=== PATIENT | male | born 1985 | race Caucasian/White ===

== ENCOUNTER → 2021-06-24 17:41 | Outpatient (BNVA) | payer OTHER, SELFPAY | PROVIDERS: PCP Family Medicine; Visit Provider Nurse Practitioner Family | DX: L65.9 Nonscarring hair loss, unspecified (principal); R53.83 Other fatigue | CPT/HCPCS: 80053; 84443; 85025 ==

== ENCOUNTER → 2021-07-21 16:34 | Outpatient (BNVA) | payer OTHER, SELFPAY | PROVIDERS: PCP Family Medicine; Visit Provider Emergency Medicine | DX: L65.9 Nonscarring hair loss, unspecified (principal) | CPT/HCPCS: 84402; 84403 ==

== ENCOUNTER → 2021-10-24 16:59 | Outpatient (BNVA) | payer OTHER, SELFPAY | PROVIDERS: PCP Family Medicine; Visit Provider Emergency Medicine | DX: T67.4XXA Heat exhaustion due to salt depletion, initial encounter (principal); X30.XXXA Exposure to excessive natural heat, initial encounter | CPT/HCPCS: 80048 ==

== ENCOUNTER 2021-10-31 19:29 | Emergency (ER) | payer SELFPAY ==
[2021-10-31 19:36] VITALS: BP 144/85; PULSE 94; RESP 18; TEMP 36.7; O2SAT 99; BMI 24.7
[2021-10-31] MEDS: sodium chloride 0.9% 1,000 ML 999 ML IV ×2 (20:00→20:35)
[2021-10-31 20:07] LABS: Basophils % 0.4 %; Eosinophils # 0.3 10^3/uL (0.0-0.8); Eosinophils % 3.1 %; Hemoglobin 16.9 g/dL (11.7-16.6); Lymphocytes % 35.4 %; Mean Corpuscular HGB Conc 34.5 g/dL (30.0-36.0); Mean Corpuscular Hemoglobin 28.5 pg (28.0-34.0); Mean Corpuscular Volume 82.8 fl (80-94); Monocytes # 0.7 10^3/uL (0.2-0.9); Monocytes % 8.8 %; Neutrophils # 4.34 10^3/uL (1.8-7.7); Neutrophils % 51.6 %; Nucleated Red Blood Cells % 0 %; Platelet Count 243 10^3/cmm (130-400); Red Blood Count 5.92 10^6/uL (4.1-5.3); Red Cell Distribution Width 12.5 % (12.1-15.1); White Blood Count 8.4 10^3/uL (4.0-10.0)
--- NOTE | 2021-10-31 20:15 | CTR_ITS ---
PROCEDURE INFORMATION: Exam: CT Head Without Contrast Exam date and time: 10/31/2021 8:25 PM Age: 35 years old Clinical indication: Pain; Headache; Patient HX: SPENCER with dizziness. TECHNIQUE: Imaging protocol: Computed tomography of the head without contrast. Radiation optimization: All CT scans at this facility use at least one of these dose optimization techniques: automated exposure control; mA and/or kV adjustment per patient size (includes targeted exams where dose is matched to clinical indication); or iterative reconstruction. COMPARISON: No relevant prior studies available. RADIATION DOSE METRICS: Total DLP (mGy-cm): 1089.58 FINDINGS: Brain: Normal. No hemorrhage. Unremarkable white matter. No mass effect. Cerebral ventricles: No ventriculomegaly. Paranasal sinuses: There is mild patchy mucosal thickening in the sinuses. No air-fluid levels. Mastoid air cells: Visualized mastoid air cells are well aerated. Bones/joints: Unremarkable. No acute fracture. Soft tissues: Unremarkable. CT/CT head wo con* [id number] IMPRESSION: No acute intracranial abnormality.
--- NOTE | 2021-10-31 20:18 | ED_ITS ---
HPI - Weakness General: Chief complaint: Weakness Stated complaint: heat exposure, tired Time Seen by Provider: 10/31/21 19:52 Source: patient Mode of arrival: ambulatory Limitations: no limitations History of Present Illness: 35-year-old male who states that he got overheated 3 weeks ago. He states that ever since that he is just not been feeling right. He states he feels dehydrated and lethargic and been having some mild headaches he states headaches currently 6 out of 10. He states he is outside working 3 weeks ago when went down on the floor was having carpopedal spasms and states that he has never been seen since then. Denies any vomiting or diarrhea. Associated symptoms: Reports headache(s); Denies chest pain, chills, dysuria, easy bruising, fever(s), nausea or vomiting Review of Systems Const: Reports: body aches and fatigue; Denies: fever(s), chills or change in appetite Eyes: Denies: blurry vision or eye discomfort ENMT: Denies: throat pain or dental pain Card: Denies: chest pain Resp: Denies: dyspnea GI: Denies: abdominal pain, nausea, vomiting or diarrhea : Denies: dysuria Musc: Denies: neck pain or back pain Skin/Breast: Denies: rash Neuro: Reports: headache(s) Psych: Denies: depression Gunner/Lymph: Denies: easy bruising All/Imm: Denies: urticaria PFSH ED PFSH: Social History Smoking and tobacco status: former smoker Alcohol intake: current Alcohol intake frequency: holidays/special occasions only Physical Exam Const: COMMON NORMALS: no acute distress, patient oriented x3 and healthy appearing HENMT: COMMON NORMALS: normocephalic and atraumatic HEAD & SCALP: normocephalic and atraumatic Eye: COMMON NORMALS: Equal, round and reactive pupils present and EOMs intact bilaterally PUPIL: Yes Equal, round and reactive pupils present Neck/C-Spine: COMMON NORMALS: full ROM and supple Chest: COMMONS NORMALS: normal inspection of the chest and normal palpation of entire chest wall Resp: COMMON NORMALS: normal respiratory effort, No retractions, No use of accessory muscles and clear to auscultation bilaterally AUSCULTATION: clear to auscultation bilaterally Cardio: COMMON NORMALS: regular rate, regular rhythm and No murmurs present (Cardio) RATE: regular rate RHYTHM: regular rhythm GI: COMMON NORMALS: Normal to inspection, nondistended, normoactive bowel sounds present, Soft to palpation, non-tender and no masses PALPATION: Yes Soft to palpation Extremity: COMMON NORMALS: normal to inspection and full ROM Neuro: COMMON NORMALS: patient oriented x3, moves all extremities and no focal motor deficits Psych: COMMON NORMALS: mental status grossly normal, Normal thought process present and cooperative THOUGHT PROCESS: Normal thought process present Skin: COMMON NORMALS: no rashes or lesions noted and no wounds GENERAL SKIN EXAM: no rashes or lesions noted Course Vital Signs: Vital signs: Vital Signs Temperature 98.1 F 10/31/21 19:36 Pulse Rate 84 10/31/21 20:39 Respiratory Rate 16 10/31/21 20:39 Blood Pressure 127/85 10/31/21 20:39 Pulse Oximetry 100 10/31/21 20:39 Oxygen Delivery Me thod 10/31/21 19:36 MDM - Weakness Medical Decision Making Patient presents here he exposure he feels much improved here after IV fluids he has had headaches his head CT is normal he has no signs of subarachnoid hemorrhage or aneurysm. He is stable for discharge he is to follow-up PCP and return if worsening he understands agrees to plan. Lab Data : 10/31/21 19:47 10/31/21 19:[address] 10/31/21 20:15 IMPRESSION: No acute intracranial abnormality. Laboratory Results WBC 8.4 10^3/uL (4.0-10.0) 10/31/21 19:47 RBC 5.92 10^6/uL (4.1-5.3) H 10/31/21 19:47 Hgb 16.9 g/dL (11.7-16.6) H 10/31/21 19:47 Hct 49.0 % (42.0-52.0) 10/31/21 19:47 MCV 82.8 fl (80-94) 10/31/21 19:47 MCH 28.5 pg (28.0-34.0) 10/31/21 19:47 MCHC 34.5 g/dL (30.0-36.0) 10/31/21 19:47 RDW 12.5 % (12.1-15.1) 10/31/21 19:47 Plt Count 243 10^3/cmm (130-400) 10/31/21 19:47 MPV 9.0 fL (7.4-10.4) 10/31/21 19:47 Neut % (Auto) 51.6 % 10/31/21 19:47 Lymph % (Auto) 35.4 % 10/31/21 19:47 [place] % (Auto) 8.8 % 10/31/21 19:47 Eos % (Auto) 3.1 % 10/31/21 19:47 Baso % (Auto) 0.4 % 10/31/21 19:47 Neut # (Auto) 4.34 10^3/uL (1.8-7.7) 10/31/21 19:47 Lymph # (Auto) 3.0 10^3/uL (0.8-4.8) 10/31/21 19:47 [place] # (Auto) 0.7 10^3/uL (0.2-0.9) 10/31/21 19:47 Eos # (Auto) 0.3 10^3/uL (0.0-0.8) 10/31/21 19:47 Baso # (Auto) 0.0 10^3/uL (0.0-0.1) 10/31/21 19:47 Nucleated RBC % (auto) 0 % 10/31/21 19:47 Nucleated RBCs # 0.0 /100WBC 10/31/21 19:47 Sodium 140 mmol/L (136-145) 10/31/21 19:47 Potassium 4.2 mmol/L (3.5-5.1) 10/31/21 19:47 Chloride 101 mmol/L (98-107) 10/31/21 19:47 Carbon Dioxide 29 mmol/L (22-29) 10/31/21 19:47 Anion Gap 14.2 (5-19) 10/31/21 19:47 BUN 11 mg/dL (6-20) 10/31/21 19:47 Creatinine 0.6 mg/dL (0.7-1.2) L 10/31/21 19:47 GFR Calculation 153.3 mL/min (90-130) H 10/31/21 19:47 Glucose 78 mg/dL (65-115) 10/31/21 19:47 Calculated Osmolality 288 mOsm/kg (285-295) 10/31/21 19:47 Calcium 10.2 mg/dL (8.5-10.5) 10/31/21 19:47 Total Bilirubin 0.4 mg/dL (0.15-1.2) 10/31/21 19:47 AST 26 U/L (0-40) 10/31/21 19:47 ALT 74 U/L (0-41) H 10/31/21 19:47 Alkaline Phosphatase 79 IU/L (40-130) 10/31/21 19:47 Creatine Kinase 65 U/L (39-308) 10/31/21 19:47 Total Protein 7.8 g/dL (6.6-8.7) 10/31/21 19:47 Albumin 5.2 g/dL (3.5-5.2) 10/31/21 19:47 Globulin 2.6 g/dL (1.3-4.6) 10/31/21 19:47 TSH 2.22 uIU/mL (0.27-4.20) 10/31/21 19:47 TSH Cancelled 10/31/21 19:47 Discharge Plan Discharge Patient Disposition: Home Clinical Impression: Heat exposure Condition: Stable Prescriptions: No Action bupropion HCl [Wellbutrin SR] 100 mg tablet sustained-release 12 hr 100 mg PO QAM 30 Days Qty: 30 0RF Discharge Orders: Discharge ED (Routine); Ordered 10/31/21 Ordered By: Alex Julio Discharge Diet: Advance as tolerated Discharge Activity: Resume usual activity Patient Instructions: Heat Exhaustion (ED) Coding Level of Care Code ED Claim Trainee for Chg Fwd Exam Comprehensive
[2021-10-31] MEDS: ondansetron 2 mg/ML SDV 2 mL 4 MG IVP (20:35)
[2021-10-31 20:39] VITALS: BP 127/85; PULSE 84; RESP 16; O2SAT 100
[2021-10-31 20:46] LABS: Alanine Aminotransferase 74 U/L (0-41); Albumin Level 5.2 g/dL (3.5-5.2); Alkaline Phosphatase 79 IU/L (40-130); Anion Gap 14.2 (5-19); Aspartate Amino Transferase 26 U/L (0-40); Blood Urea Nitrogen 11 mg/dL (6-20); Calcium 10.2 mg/dL (8.5-10.5); Carbon Dioxide 29 mmol/L (22-29); Chloride 101 mmol/L (98-107); Creatine Phosphokinase 65 U/L (39-308); Globulin 2.6 g/dL (1.3-4.6); Glomerular Filtration Rate 153.3 mL/min (90-130); Glucose 78 mg/dL (65-115); Osmolality Calculated 288 mOsm/kg (285-295); Potassium 4.2 mmol/L (3.5-5.1); Sodium 140 mmol/L (136-145); Thyroid Stimulating Hormone 2.22 uIU/mL (0.27-4.20); Total Bilirubin 0.4 mg/dL (0.15-1.2); Total Protein 7.8 g/dL (6.6-8.7)
== END 2021-10-31 21:26 | disposition home or self-care (01) ==
PROVIDERS: Emergency Provider Emergency Medicine
DX: T67.9XXA Effect of heat and light, unspecified, initial encounter (principal); X30.XXXA Exposure to excessive natural heat, initial encounter; Z87.891 Personal history of nicotine dependence
CPT/HCPCS: 70450; 80053; 82550; 84443; 85025; 96374; 99284; J2405; J7030

== ENCOUNTER → 2021-12-15 09:04 | Outpatient (BNVA) | payer OTHER, SELFPAY | PROVIDERS: PCP Family Medicine; Visit Provider Family Medicine | DX: G47.10 Hypersomnia, unspecified (principal); I10 Essential (primary) hypertension; G47.00 Insomnia, unspecified; R74.01 Elevation of levels of liver transaminase levels; R53.83 Other fatigue; Z11.4 Encounter for screening for human immunodeficiency virus [HIV]; Z87.898 Personal history of other specified conditions; E34.9 Endocrine disorder, unspecified; F32.1 Major depressive disorder, single episode, moderate; R53.82 Chronic fatigue, unspecified | CPT/HCPCS: 80053; 84402; 84403; 86803; 87806 ==

== ENCOUNTER 2022-01-27 20:00 | Outpatient (CLI) | payer OTHER, SELFPAY | END 2022-01-27 20:01 | disposition home or self-care (01) | LOC: SLEEP 01-28 07:02 | PROVIDERS: PCP Family Medicine; Visit Provider Family Medicine | DX: G47.10 Hypersomnia, unspecified (principal); R06.83 Snoring; G47.33 Obstructive sleep apnea (adult) (pediatric) | CPT/HCPCS: 95810 ==

== ENCOUNTER → 2022-02-23 11:25 | Outpatient (BNVA) | payer OTHER, SELFPAY | PROVIDERS: PCP Family Medicine; Visit Provider Family Medicine | DX: R53.82 Chronic fatigue, unspecified (principal); A04.8 Other specified bacterial intestinal infections; R41.89 Other symptoms and signs involving cognitive functions and awareness; G47.33 Obstructive sleep apnea (adult) (pediatric); I10 Essential (primary) hypertension; G47.10 Hypersomnia, unspecified | CPT/HCPCS: 80053; 82607; 82652; 84443; 85025; 86618; 86666; 86757 ==

== ENCOUNTER 2024-02-14 12:27 | Emergency (ER) | payer MEDICAID, SELFPAY ==
--- NOTE | 2024-02-14 12:29 | XRR_ITS ---
PROCEDURE INFORMATION: Exam: XR Right Knee Exam date and time: 02/14/2024 2:41 PM Age: 38 years old Clinical indication: Injury or trauma; Other: Not specified; Blunt trauma; Knee; Right TECHNIQUE: Imaging protocol: Radiologic exam of the right knee. Views: 3 views. COMPARISON: No relevant prior studies available. FINDINGS: Bones/joints: Small to moderate joint effusion. No fracture. Soft tissues: Normal. XR/XR knee RT 3V* [id number] IMPRESSION: Joint effusion.
[2024-02-14 12:45] VITALS: BP 121/82; PULSE 98; RESP 16; TEMP 36.9; O2SAT 100; BMI 23.6
--- NOTE | 2024-02-14 14:36 | USCV_ITS ---
Greg Mathews Age: 38 Gender: M : 1985 Exam Date: 02/14/2024 15:00 Ordering Phys: Rajani Griggs Technologist: Exam Location: [facility] [place] Indication: painfull pale rt leg Risk Factors: Previous Vascular Surgery: RIGHT LEFT BP: 125.0 / 75.00 BP: 120.0/ 75.00 0 0 Waveform Velocity (cm/s) Velocity (cm/s) Waveform Triphasic 122.0 Iliac Prox Triphasic 130.0 Iliac Mid Triphasic 114.0 Iliac Distal Triphasic [employer] CONSULTANT 92.0 Triphasic 103.0 SFA Prox Triphasic 114.0 SFA Mid Triphasic 101.0 SFA Dist Triphasic 40.0 POP Triphasic 34.0 [employer] Triphasic 29.0 DPA 1.0 ENMANUEL FINDINGS normal blood flow Resting ENMANUEL 1.0 on the right side Normal arterial Doppler waveforms and velocities CONCLUSIONS Normal resting ENMANUEL with normal Doppler features. No significant arterial obstruction, based on the above findings. Dr Basil Cordon MD FACC (Electronically Signed) Final Date: 15 February 2024 20:16 S
--- NOTE | 2024-02-14 14:38 | ED_ITS ---
Documented by User: DUANE Donahue 02/14/24 16:21 HPI - Extremity Problem 2 General: Chief complaint: Extremity Problem,Nontraumatic Stated complaint: rt knee inj Time Seen by Provider: 02/14/24 12:48 Source: patient Mode of arrival: ambulatory Limitations: no limitations History of Present Illness: Patient is a 38-year-old male presents to ED today with complaint of right lower extremity pain. Patient states yesterday he was at a friend's house, seated at a barstool when he began noticing that his right lower extremity felt numb. Patient feels like symptoms improved when he got home. He states he woke up this morning and noticed pain and swelling involving his right knee and into his right calf. He has not had any known injury or trauma to the lower extremity. He states he has pain starting at his right hip radiating all the way down into the calf. He has not noticed any color or temperature changes however clinically the right foot is cool to the touch and pale when compared to the left. PMH significant for ADHD that he treats with Adderall. MD Complaint: extremity pain, joint swelling and joint pain Onset (ago): day(s) Pain Consistency: constant Location: right, lower extremity and knee Exacerbating factors: range of motion, weight bearing and walking Associated symptoms: Reports no associated symptoms; Deny chest pain or fever(s) Related Data Home Medications Medication Instructions Recorded Confirmed dextroamphetamine-amphetamine ER 25 mg PO DAILY 02/14/24 02/14/24 25 mg 24hr capsule,extend release (Adderall XR) Previous Rx's Medication Instructions Recorded ibuprofen 800 mg tablet 800 mg PO Q8H PRN pain #20 tabs 02/14/24 Allergies Allergy/AdvReac Type Severity Reaction Status Date / Time No Known Allergies Allergy Verified 02/14/24 12:53 Review of Systems 2 Const: Denies: fever(s), chills, body aches, fatigue or malaise Card: Denies: chest pain Resp: Denies: dyspnea Musc: Reports: extremity pain, joint pain, joint swelling, joint redness and joint warmth; Denies: neck pain, back pain, extremity swelling, muscle cramps, muscle weakness or decrease in muscle mass Neuro: Reports: sensory changes (R LE) and difficulty walking (due to pain in R LE); Denies: numbness in extremities or weakness in extremities PFSH ED 2 PFSH: Social History Smoking and tobacco/nicotine status: never used tobacco/nicotine Alcohol intake: current Alcohol intake frequency: holidays/special occasions only Substance/Drug Use: 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 Physical Exam 2 Const: COMMON NORMALS: no acute distress, average body habitus, patient oriented x3, no limitations, healthy appearing, alert and well nourished G ENERAL APPEARANCE: cooperative ORIENTATION/CONSCIOUSNESS: Yes awake, Yes oriented to person, Yes oriented to place and Yes oriented to time Resp: COMMON NORMALS: normal respiratory effort and clear to auscultation bilaterally AUSCULTATION: clear to auscultation bilaterally Cardio: COMMON NORMALS: regular rate and regular rhythm RATE: regular rate RHYTHM: regular rhythm Back/Pelvis: COMMON NORMALS: thoracic and lumbar spine normal to inspection, no thoracic nor lumbar tenderness, thoraco-lumbar ROM normal and straight leg raise negative bilaterally Extremity: COMMON NORMALS: no pedal edema GENERAL: Yes normal exam except as noted OTHER: pts R foot appears pale and feels cool when compared to L; I can easily palpate DP pulse on L but not on R; he has a palpable R femoral pulse R knee anteriorly is slightly erythematous and warm to the touch; joint effusion present; small scab/sore noted; he does have painful ROM but micro-movements are fairly tolerated; pain just distal to knee into calf Neuro: COMMON NORMALS: patient oriented x3, moves all extremities, no focal motor deficits and no sensory deficits noted SENSORIUM/ORIENTATION: Yes alert, Yes oriented to person, Yes oriented to place and Yes oriented to time Course 2 Vital Signs: Vital signs: Vital Signs Temperature 98.4 F 02/14/24 12:45 Pulse Rate 90 02/14/24 17:02 Respiratory Rate 18 02/14/24 16:00 Blood Pressure 132/88 02/14/24 17:02 Pulse Oximetry 97 02/14/24 17:02 Oxygen Delivery Me thod Room Air 02/14/24 16:00 MDM - Extremity (Nontraumatic) Medical Decision Making Patient with complaint of pain to R LE mainly around his knee joint. He was fairly tender with ROM of the joint. His R foot was pale and cool compared to L thus US imaging ordered. He has normal arterial flow throughout the extremity. No DVT. Spoke to him about arthrocentesis for septic joint rule out which he was agreeable to at first but ultimately refused. Risks of this were discussed and he verbalized understanding. Will treat his knee effusion with anti- inflammatories and have him follow-up primary care. Vital signs are normal. His blood work showing a normal white count. Normal lactate and normal ESR. CRP is scantly elevated 11.5. Return to ED precautions given. Medical Records I reviewed the patient's medical records. Lab Data I reviewed the patient's lab results. 02/14/24 15:31 Radiology Impressions Knee X-Ray 02/14/24 12:29 IMPRESSION: Joint effusion. Laboratory Results WBC 8.88 10^3/uL (3.29-11.43) 02/14/24 15:31 RBC 4.89 10^6/uL (3.85-5.65) 02/14/24 15:31 Hgb 14.50 g/dL (11.27-16.99) 02/14/24 15:31 Hct 41.7 % (37-53) 02/14/24 15:31 MCV 85.3 fl (82-101) 02/14/24 15:31 MCH 29.7 pg (27-33) 02/14/24 15:31 MCHC 34.8 g/dL (30-55) 02/14/24 15:31 RDW 12.3 % (12.1-15.1) 02/14/24 15:31 Plt Count 255 10^3/cmm (157-399) 02/14/24 15:31 MPV 8.9 fL (7.4-10.4) 02/14/24 15:31 Neut % (Auto) 67.0 % 02/14/24 15:31 Lymph % (Auto) 20.8 % 02/14/24 15:31 [place] % (Auto) 8.2 % 02/14/24 15:31 Eos % (Auto) 3.6 % 02/14/24 15:31 Baso % (Auto) 0.2 % 02/14/24 15:31 Neut # (Auto) 5.94 10^3/uL (1.8-7.7) 02/14/24 15:31 Lymph # (Auto) 1.9 10^3/uL (0.8-4.8) 02/14/24 15:31 [place] # (Auto) 0.7 10^3/uL (0.2-0.9) 02/14/24 15:31 Eos # (Auto) 0.3 10^3/uL (0.0-0.8) 02/14/24 15:31 Baso # (Auto) 0.0 10^3/uL (0.0-0.1) 02/14/24 15:31 Nucleated RBC % (auto) 0 % 02/14/24 15:31 Nucleated RBCs # 0.0 /100WBC 02/14/24 15:31 ESR 6 mm/hr (0-10) 02/14/24 15:31 Lactic Acid 1.4 mmol/L (0.5-2.2) 02/14/24 15:31 C-Reactive Protein 11.5 mg/L (0.0-4.9) H 02/14/24 15:31 All radiology interpretation(s) finalized by discharge Discharge Plan Discharge Patient Disposition: Home Clinical Impression: Acute pain of right knee Condition: Stable Prescriptions: New ibuprofen 800 mg tablet 800 mg PO Q8H PRN (Reason: pain) Qty: 20 0RF No Action dextroamphetamine-amphetamine [Adderall XR] 25 mg capsule,extended release 24hr 25 mg PO DAILY Discharge Orders: Discharge ED (Routine); Ordered 02/14/24 Ordered By: Rajani Griggs Referrals: Oly Kelly [Primary Care Provider] - Activity Restrictions/Additional Instructions: As we discussed, your white count here was normal. One of your inflammatory markers was normal, the other was scantly elevated. You have declined an arthrocentesis for further evaluation and rule out of a septic joint. I would like you to ice and elevate the knee and begin taking your prescription anti- inflammatories. You need to return to the emergency department immediately for worsening knee pain, redness, warmth, severe pain with range of motion of the knee joint, fevers, or any other concerns you may have. Otherwise I would like you to follow-up with primary care by the end of the week. Coding Level of Care Code ED Complaint Adjuster for Yojana Fwd Documented by User: Alex Julio MD 02/14/24 17:26 HPI - Extremity Problem 2 General: Chief complaint: Extremity Problem,Nontraumatic Stated complaint: rt knee inj Time Seen by Provider: 02/14/24 12:48 Related Data Home Medications Medication Instructions Recorded Confirmed dextroamphetamine-amphetamine ER 25 mg PO DAILY 02/14/24 02/14/24 25 mg 24hr capsule,extend release (Adderall XR) Previous Rx's Medication Instructions Recorded ibuprofen 800 mg tablet 800 mg PO Q8H PRN pain #20 tabs 02/14/24 Allergies Allergy/AdvReac Type Severity Reaction Status Date / Time No Known Allergies Allergy Verified 02/14/24 12:53 PFSH ED 2 PFSH: Social History Smoking and tobacco/nicotine status: never used tobacco/nicotine Alcohol intake: current Alcohol intake frequency: holidays/special occasions only Substance/Drug Use: 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 He was fairly tender with ROM of the joint. His R foot was pale and cool compared to L thus US imaging ordered. He has normal arterial flow throughout the extremity. No DVT. Spoke to him about arthrocentesis for septic joint rule out which he was agreeable to at first but ultimately refused. Risks of this were discussed and he verbalized understanding. Will treat his knee effusion with anti- inflammatories and have him follow-up primary care. Vital signs are normal. His blood work showing a normal white count. Normal lactate and normal ESR. CRP is scantly elevated 11.5. Return to ED precautions given. I seen patient above midlevel I attempted to do arthrocentesis and he refused inflammatory markers are normal as exam showed minimal tenderness and minimal erythema I strongly recommended arthrocentesis to rule out the possibility of septic joint I do believe that it is very unlikely he refused before is able to attempt to draw any fluid off we will discharge this time he is return if he has worsening pain he understands agrees to plan. Lab Data 02/14/24 15:31 Radiology Impressions Knee X-Ray 02/14/24 12:29 IMPRESSION: Joint effusion. Laboratory Results WBC 8.88 10^3/uL (3.29-11.43) 02/14/24 15:31 RBC 4.89 10^6/uL (3.85-5.65) 02/14/24 15:31 Hgb 14.50 g/dL (11.27-16.99) 02/14/24 15:31 Hct 41.7 % (37-53) 02/14/24 15:31 MCV 85.3 fl (82-101) 02/14/24 15:31 MCH 29.7 pg (27-33) 02/14/24 15:31 MCHC 34.8 g/dL (30-55) 02/14/24 15:31 RDW 12.3 % (12.1-15.1) 02/14/24 15:31 Plt Count 255 10^3/cmm (157-399) 02/14/24 15:31 MPV 8.9 fL (7.4-10.4) 02/14/24 15:31 Neut % (Auto) 67.0 % 02/14/24 15:31 Lymph % (Auto) 20.8 % 02/14/24 15:31 [place] % (Auto) 8.2 % 02/14/24 15:31 Eos % (Auto) 3.6 % 02/14/24 15:31 Baso % (Auto) 0.2 % 02/14/24 15:31 Neut # (Auto) 5.94 10^3/uL (1.8-7.7) 02/14/24 15:31 Lymph # (Auto) 1.9 10^3/uL (0.8-4.8) 02/14/24 15:31 [place] # (Auto) 0.7 10^3/uL (0.2-0.9) 02/14/24 15:31 Eos # (Auto) 0.3 10^3/uL (0.0-0.8) 02/14/24 15:31 Baso # (Auto) 0.0 10^3/uL (0.0-0.1) 02/14/24 15:31 Nucleated RBC % (auto) 0 % 02/14/24 15:31 Nucleated RBCs # 0.0 /100WBC 02/14/24 15:31 ESR 6 mm/hr (0-10) 02/14/24 15:31 Lactic Acid 1.4 mmol/L (0.5-2.2) 02/14/24 15:31 C-Reactive Protein 11.5 mg/L (0.0-4.9) H 02/14/24 15:31 Discharge Plan Discharge Patient Disposition: Home Clinical Impression: Acute pain of right knee Condition: Stable Prescriptions: New ibuprofen 800 mg tablet 800 mg PO Q8H PRN (Reason: pain) Qty: 20 0RF No Action dextroamphetamine-amphetamine [Adderall XR] 25 mg capsule,extended release 24hr 25 mg PO DAILY Discharge Orders: Discharge ED (Routine); Ordered 02/14/24 Ordered By: Rajani Griggs Referrals: Oly Kelly [Primary Care Provider] - Activity Restrictions/Additional Instructions: As we discussed, your white count here was normal. One of your inflammatory markers was normal, the other was scantly elevated. You have declined an arthrocentesis for further evaluation and rule out of a septic joint. I would like you to ice and elevate the knee and begin taking your prescription anti- inflammatories. You need to return to the emergency department immediately for worsening knee pain, redness, warmth, severe pain with range of motion of the knee joint, fevers, or any other concerns you may have. Otherwise I would like you to follow-up with primary care by the end of the week. Coding Level of Care Code ED Complaint Adjuster for Yojana Haro
[2024-02-14 14:52] VITALS: BP 120/80; PULSE 74; RESP 18; O2SAT 97
[2024-02-14 15:45] LABS: Basophils % 0.2 %; Eosinophils # 0.3 10^3/uL (0.0-0.8); Eosinophils % 3.6 %; Hematocrit 41.7 % (37-53); Lymphocytes # 1.9 10^3/uL (0.8-4.8); Lymphocytes % 20.8 %; Mean Corpuscular HGB Conc 34.8 g/dL (30-55); Mean Corpuscular Hemoglobin 29.7 pg (27-33); Mean Corpuscular Volume 85.3 fl (82-101); Mean Platelet Volume 8.9 fL (7.4-10.4); Monocytes # 0.7 10^3/uL (0.2-0.9); Monocytes % 8.2 %; Neutrophils # 5.94 10^3/uL (1.8-7.7); Nucleated Red Blood Cells % 0 %; Platelet Count 255 10^3/cmm (157-399); Red Blood Count 4.89 10^6/uL (3.85-5.65); Red Cell Distribution Width 12.3 % (12.1-15.1); White Blood Count 8.88 10^3/uL (3.29-11.43)
[2024-02-14 15:48] LABS: Erythrocyte Sedimentation Rate 6 mm/hr (0-10)
[2024-02-14 16:00] VITALS: BP 132/88; PULSE 81; RESP 18; O2SAT 98
[2024-02-14 16:06] LABS: C Reactive Protein 11.5 mg/L (0.0-4.9); Lactic Sepsis W/Reflex 1.4 mmol/L (0.5-2.2)
[2024-02-14 17:02] VITALS: BP 132/88; PULSE 90; O2SAT 97
== END 2024-02-14 17:03 | disposition home or self-care (01) ==
PROVIDERS: Emergency Provider Physician Assistant; PCP Nurse Practitioner Family
DX: M25.561 Pain in right knee (principal)
CPT/HCPCS: 73562; 83605; 85025; 85651; 86140; 93926; 93971; 99284; E0114